=== PATIENT | male | born 1980 | race American Indian/Alaskan Native ===

== ENCOUNTER 2019-02-14 17:18 | Emergency (ER) | payer OTHER ==
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
[2019-02-14 18:58] VITALS: BP 152/85
--- NOTE | 2019-02-14 21:26 | Cat Scan Report ---
PROCEDURE: CT CERVICAL SPINE WO CON TECHNIQUE: Axial helical imaging through the cervical spine with sagittal and coronal reformatted im ages obtained. HISTORY: pain COMPARISONS: None FINDINGS: There is mild reversal of the normal lordotic curve of the cervical spine. This may be positional in nature. The vertebral heights are maintained. There is loss of height of the disc spaces throughout the cervical spine with relative sparing of the C2-C3 and C7-T1 discs. There is multiple level degenerative facet change. There is multiple level bony canal and foraminal stenosis secondary to spondylitic change. Visualization of detail the contents of the cervical canal is limited by artifact. There is no evidence of fracture or subluxation. The paraspinous soft tissues are unremarkable. IMPRESSION: 1. No evidence of fracture or subluxation. 2. Cervical spondylosis. If the patient remains symptomatic, MRI may be helpful for further evaluation. This document is electronically signed by Gaby Swain MD., February 14 2019 09:24:40 PM ET
[2019-02-14] MEDS ORDERED: IBUPROFEN PO ONE (22:24)
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
== END 2019-02-14 22:44 | disposition home or self-care (01) ==
LOC: ED 17:18
DX: S13.4XXA Sprain of ligaments of cervical spine, initial encounter (principal); V49.49XA Driver injured in collision with other motor vehicles in traffic accident, initial encounter; Y93.89 Activity, other specified; Y92.410 Unspecified street and highway as the place of occurrence of the external cause; Y99.8 Other external cause status
CPT/HCPCS: 72125

== ENCOUNTER 2021-04-16 15:02 | Emergency (ER) | payer BC, OTHER ==
[2021-04-16] MEDS ORDERED: HYDROcodone/ACETAMINOPHEN 7.5-325MG TAB PO ONE (17:43)
[2021-04-16] MEDS ORDERED: TETANUS,DIPH,PERTUSS(ACELL) VACCINE 0.5 ML SYRINGE IM ONE (17:44)
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
--- NOTE | 2021-04-16 18:33 | XRay Report ---
RIGHT FEMUR 2 VIEW(S) INDICATION / CLINICAL INFORMATION: Dog bite concern for foreign object COMPARISON: None available. FINDINGS: BONES / JOINT(S): No acute fracture or subluxation. No significant arthritis. SOFT TISSUES: Enthesopathy noted at the distal quadriceps insertion as well as the proximal and dista l insertion of the patellar tendon. Soft tissue fat stranding and swelling along the lateral aspect o f the distal femur. No evidence of radiopaque retained foreign body. ADDITIONAL FINDINGS: None. Signer Name: Delonte Mccarthy MD Signed: 04/16/2021 6:28 PM Workstation Name: [id number]
[2021-04-16 18:56] VITALS: BP 132/88
== END 2021-04-16 18:53 | disposition home or self-care (01) ==
LOC: ED 15:02
DX: S71.151A Open bite, right thigh, initial encounter (principal); Z79.899 Other long term (current) drug therapy; W54.0XXA Bitten by dog, initial encounter; Y93.89 Activity, other specified; Y92.89 Other specified places as the place of occurrence of the external cause; Y99.8 Other external cause status
CPT/HCPCS: 90471; 90715